=== PATIENT | male | born 1970 | race Caucasian/White ===

== ENCOUNTER 2024-05-07 02:26 | Emergency (ER) | payer OTHER, SELFPAY ==
[2024-05-07] MEDS: ZOFRAN 4 MG IV (02:36)
[2024-05-07] MEDS: TORADOL 15 MG IV (02:36)
[2024-05-07] MEDS: DILAUDID 0.5 MG IV ×2 (02:37→04:26)
[2024-05-07] MEDS: NSS 1000 IV (02:38)
[2024-05-07 02:43] VITALS: BMI 31.5
[2024-05-07 02:52] LABS: % Basophils 1.1 % (0-2); % Eosinophils 3.1 % (0-6); % Immature Granulocytes 0.7 % (0-0.5); % Lymphocytes 27.2 % (20.5-51.1); % Neutrophils 62.9 % (42.2-75.2); Absolute Basophils 0.1 10^3/uL (0-0.2); Absolute Eosinophils 0.3 10^3/uL (0-0.7); Absolute Immature Granulocytes 0.1 10^3/uL (0-0.05); Absolute Lymphocytes 2.5 10^3/uL (1.2-3.4); Absolute Monocytes 0.5 10^3/uL (0.1-0.6); Absolute Neutrophils 5.8 10^3/uL (1.4-6.5); Hematocrit 40.2 % (39.0-52.0); Hemoglobin 13.6 g/dL (13.0-18.0); Mean Corp Hgb Conc. 33.8 g/dL (33.0-37.0); Mean Corpuscular Hgb 29.6 pg (27.0-31.0); Mean Corpuscular Volume 87.4 fL (80.0-94.0); Mean Platelet Volume 9.9 fL (7.4-10.4); Nucleated Red Blood Cells % 0 % (-); Platelet Count 288 10^3/uL (130-400); Red Cell Dist. Width 13.8 % (11.5-14.5); White Blood Cell Count 9.2 10^3/uL (4.8-10.8)
[2024-05-07 02:54] VITALS: BP 164/95
--- NOTE | 2024-05-07 03:00 | ED.GENMED ---
History of Present Illness
General
Chief Complaint: Flank Pain
Source: patient and family
Exam Limitations: none
Time Seen by Provider: 05/07/24 02:32
Nursing documentation reviewed up to this point in time: agreed with
History of Present Illness
History of Present Illness:
This a pleasant 53-year-old male presents with left-sided flank pain. He has a known history of kidney stones and states that for the last 10 days he has been having some increased flank pain. Patient has a standing order for Flomax from his
previous urologist and started taking it 10 days ago. They recently moved here from [facility] and have not seen a urologist in. Patient denies fever or chills. He denies any urinary symptoms at this point. Denies chest pain or shortness
of breath.
Review of Systems
Review of Systems
Allergies reviewed?: Yes
All Other Systems: ROS reviewed and negative except as documented in HPI and ROS
Constitutional: Reports no symptoms
EENT: Reports no symptoms
Respiratory: Reports no symptoms
Cardiac: Reports no symptoms
ABD/GI: Reports abdominal pain
: Reports flank pain
Musculoskeletal: Reports no symptoms
Skin: Reports no symptoms
Neurological: Reports no symptoms
Endocrine: Reports no symptoms
Hematologic/Lymphatic: Reports no symptoms
Psychiatric: Reports no symptoms
Phy Exam
General Physical Exam
General Presentation: well appearing and mild distress
General Skin: warm and dry
General Habitus: normal
General Mental: alert
General Hydration: appears well hydrated
ENT Exam
ENT Exam: EOMI, pharynx normal, neck supple and normocephalic
Eye Exam
Eye Exam: PERRL, cornea clear and conjunctiva normal
Cardiovascular Exam
Cardiovascular Exam: regular rate/rhythm, no edema, no murmur and normal peripheral pulses
Pulmonary Exam
Pulmonary Exam: lungs clear, no respiratory distress, no rales, no crackles, no rhonchi, no stridor, no wheezing and no cough
Gastrointestinal Exam
Gastrointestinal Exam: normal bowel sounds, non tender, soft, no organomegaly, no pulsatile mass, non distended and cva tenderness (Left-sided)
Neurological Exam
Neurological Exam: alert, oriented x3, no motor deficits and speech normal
Musculoskeletal Exam
Musculoskeletal Exam: full ROM and no edema
Skin Exam
Skin Exam: normal color, warm/dry, no rash and no petechia
Psychiatric Exam
Psychiatric Exam: normal mood/affect
Course
Orders/Labs/Results
Orders:
Orders
05/07/24 02:32
0.9% Sodium Chloride 1000 ml [Nss] 1,000 ml IV BOLUS
HYDROmorphone [Dilaudid] 0.5 mg IV NOW STA
Ketorolac [Toradol] 15 mg IV NOW STA
Ondansetron Injectable [Zofran] 4 mg IV NOW STA
05/07/24 02:33
Electrocardiogram (*1) Stat
Reason for Study: Other
Other Reason for Exam: r/o kidney stone
CT Abd/pel Without Iv Or Oral Urgent
Comment:
Reason For Exam: left flank pain
EKG- Treatment ONCE
05/07/24 02:42
Complete Blood Count/With Diff Urgent
Comprehensive Metabolic Panel Urgent
Lipase Urgent
05/07/24 04:23
Urinalysis Reflex To Culture Urgent
Date Specimen was Collected: 05/07/24
Time Specimen was Collected: 04:00
Urine Microscopic Reflex Cult Urgent
Urine Culture Urgent
MARTHA Source: U
Specimen Description:
Date Specimen was Collected: 05/07/24
Time Specimen was Collected: 04:00
05/07/24 04:24
HYDROmorphone [Dilaudid] 0.5 mg IV NOW STA
Abnormal Lab Results
05/07/24 05/07/24
02:42 04:23
RBC 4.60 L 10^6/uL
(4.70-6.10)
Abs Immat Gran (auto) 0.1 H 10^3/uL
(0-0.05)
Immature Gran % 0.7 H %
(0-0.5)
Glucose 160 H mg/dl
(70-99)
Ur Occult Blood Reflex 3+ A
(Negative)
Urine RBC 50-60 A /HPF
(0-2)
Urine Bacteria (Reflex) Moderate A
(Negative)
05/07/24 02:42
05/07/24 02:42
Vital Signs
Initial and Last Documented VS:
Initial Vital Signs
Temp Pulse Resp Pulse Ox
97.7 F 76 18 99
05/07/24 02:35 05/07/24 02:35 05/07/24 02:35 05/07/24 02:35
Last Documented Vital Signs
Temp Pulse Resp BP Pulse Ox
97.7 F 60 18 154/98 95
05/07/24 02:35 05/07/24 05:26 05/07/24 05:26 05/07/24 05:26 05/07/24 05:26
*Critical Care Note
Total Time (30-74mins, 75-104mins- exclusive of procedures): Not Applicable
ED Attending Note
-
Portions of this chart may have been created with voice recognition software.� Occasional wrong word or��sound alike� substitutions may have occurred due to the inherent limitations of voice recognition software.
Discharge Plan
Departure
Patient Disposition: Home (Routine Discharge)
Date of Disposition: 05/07/24
Time of Disposition: 05:18
Patient with high blood pressure during this ER visit?: Yes
Condition: Good
Discharge Problem:
Kidney stone on left side
Instructions: Kidney Stones (DC), Flank Pain (DC), How to Strain Your Urine, BLOOD PRESSURE, Narcotic Pain Medication
Prescriptions:
New
oxycodone-acetaminophen [Percocet] 5-325 mg Tablet
1 tab PO Q6HPRN PRN (Reason: pain) Qty: 15 0RF
diclofenac sodium 75 mg tablet,delayed release (DR/EC)
75 mg PO BID Qty: 10 0RF
Referrals:
Kody Porras DO [Family Provider] -
Isaiah Liu MD [Active] - Call in 1-3 days for appt
Activity Restrictions/Additional Instructions:
Please continue to take your Flomax as directed.
Your prescriptions were sent electronically to the pharmacy that you specified.
It was a pleasure meeting you and taking part in your care. We hope for your continued healing and wellness.
Please read discharge instructions in their entirety. However, they are for general education and may not describe your exact diagnosis at discharge. Information on your ER visit and medical conditions were discussed with you along with appropriate
follow up information...
If indicated, please take your medications as instructed and indicated on discharge paperwork.
Please schedule a follow up appointment as directed. Call to schedule an appointment
Please return to the emergency department with ANY change in, persisting, or worsening of symptoms. If any of your symptoms do not improve, or persist, or become more severe within 6-12 hours, please return to the emergency department for further
care.
Please return to the emergency department if you develop a headache, neck pain/stiffness, fever greater than 100.4F, chest pain, shortness of breath, persistent nausea, vomiting, slurred speech, difficulty walking, numbness/tingling, weakness, signs
of infection or any other symptoms that are worrisome to you.
If you have any questions or concerns please do not hesitate to call the Hospital at or E-mail me directly at [email or web address]
Interventions
Interventions:
*Risk Screen - Suicide Last Done: 05/07/24 02:27
*General Assessment Last Done: 05/07/24 02:43
*Neglect/Abuse Screening Last Done: 05/07/24 02:43
ED- Fall Risk Assessment Last Done: 05/07/24 02:43
*ED COVID-19 Vaccine History Last Done: 05/07/24 02:43
*Nursing Disposition Last Done: 05/07/24 05:26
UI-Kdprke-Kzxowpmucr Assessment Last Done: 05/07/24 02:43
ED-Male Genitourinary Assessment Last Done: 05/07/24 02:43
Discharge Date and Time
Discharge Date/Time: 05/07/24 05:27
Print Language: IRISH
[2024-05-07 03:04] LABS: ALT (SGPT) 29 U/L (0-50); AST (SGOT) 35 U/L (17-59); Albumin 4.6 g/dl (3.5-5.0); Alkaline Phosphatase 60 U/L (38-126); Blood Urea Nitrogen 18 mg/dl (9-20); Calcium 9.8 mg/dl (8.4-10.2); Carbon Dioxide 26 mmol/L (22-30); Chloride 101 mmol/L (98-107); Estimated Creatinine Clearance 91 ml/min; Glucose 160 mg/dl (70-99); Lipase 180 U/L (23-300); Sodium 143 mmol/L (135-145); Total Bilirubin 0.5 mg/dl (0.2-1.3); Total Protein 7.1 g/dl (6.3-8.2); eGFR > 60.00
[2024-05-07 05:07] LABS: Urine Albumin Negative (Neg - Trace); Urine Bilirubin Negative (Negative); Urine Character Clear (Clear); Urine Color Yellow; Urine Glucose Negative (Negative); Urine Ketone Negative (Negative); Urine Leukocyte Negative (Negative); Urine Nitrite Negative (Negative); Urine Occult Blood 3+ (Negative); Urine Specific Gravity 1.025 (<1.030); Urine Urobilinogen Negative (Neg - 1+)
[2024-05-07 05:26] VITALS: BP 154/98
[2024-05-07 05:34] LABS: Urine Mucus Moderate
[2024-05-07 05:35] LABS: Urine Bacteria Moderate (Negative); Urine Red Blood Cell 50-60 /HPF (0-2); Urine Squamous Cell >30 /LPF (Few)
== END 2024-05-07 05:27 | disposition home or self-care (01) ==
LOC: EMR 02:26
PROVIDERS: EMERGENCY PHYSICIAN Student in an Organized Health Care Education/Training Program; FAMILY PHYSICIAN Internal Medicine
DX: N13.2 Hydronephrosis with renal and ureteral calculous obstruction (principal)
CPT/HCPCS: 96374; 96375; 96376; 96361; 99284; 74176; 80053; 81003; 81015; 83690; 85025; 87086; 93005

== ENCOUNTER → 2024-08-08 14:25 | Outpatient (REF) | payer OTHER, SELFPAY | LOC: RAD 14:25 | PROVIDERS: ATTENDING PHYSICIAN Nurse Practitioner Adult Health; FAMILY PHYSICIAN Internal Medicine | DX: R05.1 Acute cough (principal); R11.10 Vomiting, unspecified | CPT/HCPCS: 71046 ==

== ENCOUNTER → 2025-04-17 12:26 | Outpatient (REF) | payer OTHER, SELFPAY | LOC: RAD 12:26 | PROVIDERS: ATTENDING PHYSICIAN Internal Medicine | DX: J18.9 Pneumonia, unspecified organism (principal); I10 Essential (primary) hypertension | CPT/HCPCS: 71046 ==